=== PATIENT | male | born 1990 | race Caucasian/White ===

== ENCOUNTER → 2017-04-27 | Outpatient (CLI) | payer BC | END | disposition home or self-care (01) | LOC: RESCLI 12:59 | DX: R68.89 Other general symptoms and signs (principal); A41.9 Sepsis, unspecified organism; B34.9 Viral infection, unspecified; R50.9 Fever, unspecified ==

== ENCOUNTER 2017-05-31 06:58 | Emergency (ER) | payer BC ==
[~2017-05-31] VITALS: Ht 180.3 cm; Wt 81.6 kg
== END 2017-05-31 07:12 | disposition home or self-care (01) ==
LOC: ED 06:58
DX: H10.32 Unspecified acute conjunctivitis, left eye (principal)

== ENCOUNTER 2017-07-10 17:16 | Emergency (ER) | payer BC ==
[~2017-07-10] VITALS: Ht 180.3 cm; Wt 83.0 kg
[2017-07-10 17:57] LABS: BASO # 0.1 10*3/uL (0.0-0.1); EOS # 0.5 10*3/uL (0.0-0.4); EOS % 10.7 % (1.0-4.0); HEMATOCRIT 44.9 % (42.0-52.0); LYMPH # 1.9 10*3/uL (1.3-4.4); LYMPH % 38.3 % (27.0-41.0); MEAN CELL VOLUME 90.3 fl (80.0-94.0); MEAN CORPUSCULAR HGB 30.2 pg (27.0-31.0); MEAN CORPUSCULAR HGB CONC 33.4 g/dl (33.0-37.0); MEAN PLATELET VOLUME 8.9 fl (9.6-12.3); MONO # 0.4 10*3/uL (0.1-1.0); MONO % 8.5 % (3.0-9.0); NEUT % 40.5 % (47.0-73.0); PLATELET COUNT AUTOMATED 204 10*3/uL (130-400); RED BLOOD COUNT 4.97 10*6/uL (4.50-5.90); RED CELL DISTRI WIDTH 12.7 % (0-14.5)
[2017-07-10 18:12] LABS: ALBUMIN 4.1 gm/dl (3.1-4.5); ALKALINE PHOSPHATASE 63 U/L (45-117); BUN 19 mg/dl (7-24); CHLORIDE 102 mmol/L (98-107); POTASSIUM 3.7 mmol/L (3.5-5.1); SGOT/AST 21 IU/L (3-35); SGPT/ALT 23 U/L (12-78); SODIUM 136 mmol/L (136-145); TOTAL PROTEIN 7.2 gm/dL (6.4-8.2)
[2017-07-10] MEDS ORDERED: ZYRTEC10 MG PO (18:29)
[2017-07-10] MEDS ORDERED: DELTASONE20 M1 PO (18:29)
== END 2017-07-10 18:33 | disposition home or self-care (01) ==
LOC: ED 17:16
PROVIDERS: Physician Assistant
DX: R05 Cough (principal); Z98.890 Other specified postprocedural states

== ENCOUNTER → 2017-07-20 | Outpatient (CLI) | payer BC ==
[~2017-07-20] MED LIST: DELTASONE20 M1 PO; ZITHROMAX250 MG PO; ZYRTEC10 MG PO
== END | disposition home or self-care (01) ==
LOC: RESCLI 14:47
DX: J40 Bronchitis, not specified as acute or chronic (principal)

== ENCOUNTER 2017-07-23 11:39 | Emergency (ER) | payer BC ==
[~2017-07-23] VITALS: Ht 180.3 cm; Wt 83.5 kg
[~2017-07-23 11:39] MED LIST changes: -ZITHROMAX250 MG PO
[2017-07-23] MEDS ORDERED: ZITHROMAX250 MG PO (14:37)
== END 2017-07-23 14:46 | disposition home or self-care (01) ==
LOC: ED 11:39
DX: R04.2 Hemoptysis (principal)

== ENCOUNTER → 2017-09-10 | Outpatient (CLI) | payer BC ==
[~2017-09-10] MED LIST changes: +ZITHROMAX250 MG PO
[2017-09-10 13:23] LABS: BASO # 0.1 10*3/uL (0.0-0.1); BASO % 1.4 % (0.0-1.0); EOS # 0.5 10*3/uL (0.0-0.4); EOS % 10.8 % (1.0-4.0); HEMATOCRIT 48.4 % (42.0-52.0); HEMOGLOBIN 16.2 g/dl (14.0-18.0); LYMPH # 1.4 10*3/uL (1.3-4.4); LYMPH % 29.4 % (27.0-41.0); MEAN CELL VOLUME 91.8 fl (80.0-94.0); MEAN CORPUSCULAR HGB 30.7 pg (27.0-31.0); MEAN CORPUSCULAR HGB CONC 33.5 g/dl (33.0-37.0); MEAN PLATELET VOLUME 9.5 fl (9.6-12.3); MONO # 0.4 10*3/uL (0.1-1.0); NEUT # 2.5 10*3/uL (2.3-7.9); NEUT % 50.2 % (47.0-73.0); PLATELET COUNT AUTOMATED 231 10*3/uL (130-400); RED BLOOD COUNT 5.27 10*6/uL (4.50-5.90); RED CELL DISTRI WIDTH 12.2 % (0-14.5); WHITE BLOOD COUNT 4.9 10*3/uL (4.8-10.8)
== END | disposition home or self-care (01) ==
LOC: LAB 12:46
PROVIDERS: Internal Medicine Critical Care Medicine
DX: Z51.81 Encounter for therapeutic drug level monitoring (principal); Z79.899 Other long term (current) drug therapy

== ENCOUNTER → 2017-11-24 | Outpatient (CLI) | payer OTHER | END | disposition home or self-care (01) | LOC: RESCLI 09:27 | DX: J40 Bronchitis, not specified as acute or chronic (principal); E66.3 Overweight; J30.2 Other seasonal allergic rhinitis; Z79.899 Other long term (current) drug therapy; Z88.8 Allergy status to other drugs, medicaments and biological substances ==

== ENCOUNTER → 2018-05-18 | Outpatient (CLI) | payer OTHER | END | disposition home or self-care (01) | LOC: RESCLI 13:07 | DX: J30.89 Other allergic rhinitis (principal); J06.9 Acute upper respiratory infection, unspecified; K08.89 Other specified disorders of teeth and supporting structures ==